=== PATIENT | male | born 1965 | race Caucasian/White ===

== ENCOUNTER 2020-06-14 11:51 | Inpatient (IN) ==
[2020-06-14] MEDS ORDERED: BENZONATATE 100 MG CAPSULE PO ONE (12:15)
[2020-06-14] MEDS ORDERED: 0.9 % SODIUM CHLORIDE 1,000 ML IV ONE (12:15)
[2020-06-14] MEDS ORDERED: methylPREDNISolone SOD SUCC 125 MG/2 ML VIAL IV ONE (12:15)
[2020-06-14] MEDS ORDERED: IPRATROPIUM/ALBUTEROL 3 ML AMPUL.NEB NEB ONE ×2 (12:15→18:13)
--- NOTE | 2020-06-14 12:20 | Emergency Department Note ---
HPI General Chief complaint: Cold/Flu Symptoms Stated complaint: COVID positive Time Seen by Provider: 06/14/20 12:01 Source: patient and family Mode of arrival: ambulatory Limitations: no limitations History of Present Illness HPI Narrative: Narrative: 54-year-old male patient presents emergency department chief complaint of worsening shortness of breath and aggressive cough. Patient has known COVID positive. He was recently seen in emergency department by a colleague on 06/10. A review of that note indicates that the patient was known COVID positive 4 days prior to this visit. He has been on multiple courses of corticosteroids as well as nebulizers [id number]. Both he and his tell me that he has been using the nebulizers every 3-4 hours. They have been supplementing this with his albuterol inhaler. He was started on dual hydroxychloroquine and azithromycin therapy by the previous ER provider. Patient was also given Robitussin with codeine for the cough. Unfortunately, he and his mention that this is been ineffective in helping control symptoms. He mentions that he is unable to lay down supine secondary to coughing so aggressively that he loses air. Making matters worse, patient is known asthmatic. He tells me at least once a day he feels "like I am on my deathbed". ROS: Admits to systemic illness, fever, sweats, chills. Denies headaches, tinnitus, or vision changes. Denies runny nose or sinus congestion. Denies retrosternal chest pain or palpitations. Denies abdominal pain, nausea, vomiting, or diarrhea. Denies generalized or focal weakness. Related Data Home Medications Medication Instructions Recorded Confirmed albuterol sulfate 90 mcg/actuation 2 inh INHALATION Q6H PRN 06/04/20 06/04/20 breath activated powder inhaler dexlansoprazole 30 mg 30 mg PO QDAY 06/04/20 06/04/20 capsule,biphase delayed release Previous Rx's Medication Instructions Recorded azithromycin [Zithromax] 250 mg PO QDAY 5 Days #5 tab 06/10/20 codeine-guaifenesin 5 ml PO ONCE #240 ml 06/10/20 hydroxychloroquine 200 mg PO BID #11 tab 06/10/20 prednisone [Prednisone] 20 mg PO DAILY #23 tab 06/10/20 Allergies Allergy/AdvReac Type Severity Reaction Status Date / Time No Known Drug Allergies Allergy Verified 06/04/20 18:20 Review of Systems ROS ROS Narrative: Narrative: All systems ED: reviewed and negative except as stated. [facility] Narrative Patient History Narrative: Narrative: Medical/Surgical/Family History All Active Problems (Updated 06/14/20 @ 19:03 by Beny Garland PA-C) COVID-19 (Acute) Pneumonia due to 2019 novel coronavirus (Acute) Asthma (Acute) Shortness of breath (Acute) Wheezing on auscultation (Acute) Exposure to COVID-19 virus (Acute) Pyelonephritis (Acute) Right shoulder strain (Acute) Medical History Asthma (Acute) Exposure to COVID-19 virus (Acute) Shortness of breath (Acute) Wheezing on auscultation (Acute) Social History Smoking Status: Former smoker Alcohol Intake Frequency: a few times a month Substance Use: does not use Exam Narrative Narrative: Narrative: General Limitations: no limitations General appearance: other (Well-developed, well-nourished, acutely ill-appearing 54-year-old male patient sitting upright on the emergency room [facility] in obvious respiratory distress. He is tachypneic at 22-24 breaths/min. He is speaking in broken sentences. He has some nasal flaring. No accessory muscle use noted.) Head Head: atraumatic and normocephalic Eye Eye: Present normal appearance, PERRL and EOMI; Absent scleral icterus and conjunctival injection ENT ENT: Present normal oropharynx and mucous membranes moist Neck Neck: Present trachea midline; Absent lymphadenopathy and thyromegaly Chest Chest: Present symmetric chest wall rise Respiratory Respiratory: Present respiratory distress, wheezes (Throughout the chest.), prolonged expiratory phase and decreased breath sounds; Absent normal lung sounds bilaterally, rales/crackles, stridor and accessory muscle use Cardiovascular Cardiovascular: Present regular rate and normal rhythm; Absent systolic murmur and diastolic murmur Adbominal Abdominal: Present soft; Absent distention, tenderness, guarding, rebound, rigidity, organomegaly and mass Extremities Extremities: Present normal inspection, full ROM, normal capillary refill and pedal edema (+1 pitting edema to the dorsum of each foot.) Back Back: Present normal inspection and full ROM Neurological Neurological: Present alert and oriented X3 Psychiatric Psychiatric: Present normal affect and anxious Skin Skin: Present warm, dry and normal color Course Course Course Narrative: Patient is known COVID positive with a comorbidity of asthma. He is hypotensive at 85/46. He is not tachycardic with a heart rate of 83. He is tachypneic. His temperature is 96.4 in triage. SPO2 is initially 96% on room air. However during my examination patient decreased down to 89% on room air during lung exam. Based on his initial presentation and vital signs patient does meet SIRS criteria. We are going to get a repeat chest x-ray, screening laboratory studies including a lactic acid and procalcitonin. Patient is in considerable respiratory distress and will be provided DuoNeb treatment x1 to see what his response is. He is going to be given Solu-Medrol 125 mg IVP. We will treat his cough with benzonatate 200 mg p.o. Patient is very anxious secondary to the coughing and shortness of breath so we will provide him lorazepam 1 mg IVP. We are also going to give him normal saline 1000 mL as a bolus. Reevaluation(s) Reevaluation #1: A review the patient's diagnostics show the following: CBC WBC 10.2, RBC 4.54, hemoglobin 13.4, hematocrit 39.2, platelets 237. Lactic acid 1.8. CMP CO2 20, anion gap 17, glucose 122, all others normal limits. C- reactive protein 8.4. Procalcitonin 0.09. Portable chest x-ray does show moderate left mid lung and smaller right basilar infiltrate. Radiologist ment ions these are both new from exam 4 days ago. Upon reevaluation patient is resting more comfortably on the emergency room [place]. He is no longer tachypneic. His breathing is more controlled and he is only coughing sporadically. He is no longer in considerable respiratory distress. His SPO2 has declined to 91-93% on room air. He does mention feeling much better since being given the medications. After reviewing all of the data I discussed these findings with the patient. Patient has a normal WBC and a slightly decreased H&H. His lactic acid is normal. His chemistries were all within normal limits. C-reactive protein was only slightly elevated. His procalcitonin was negative. His portable chest x-ray did show a developing infiltrate to the left midlung and a smaller infiltrate to the right. This is new from previous exam. Patient has known COVID positive and this is likely developing viral pneumonia. He has been on 2 courses of corticosteroids as well as the hydroxychloroquine and a azithromycin with limited relief. Time: 15:30 Reevaluation #2: The patient is feeling better than initial presentation. However due to his history of asthma and known COVID positive status. I reached out to a power house engineer (Dr. Lott) to discuss the case with him prior to making a determination of disposition. Dr. Lott reviewed the patient's x- rays and we discussed his treatment course thus far. Patient is only 54 with known lung disease. Dr. Lott recommended to err on the side of caution and likely try to admit this patient to a facility that can monitor him for worsening over the next couple days. With this in mind, I did discussed the case at length with my hospitalist (Dr. Uribe). The hospitalist requested the patient be ambulated to look for oxygen desaturation. Patient was ambulated within the exam room and decompensated to 90% on room air. During this time he became profoundly dyspneic and needed to sit down. He was complaining of profound shortness of breath and was provided an additional DuoNeb treatment. Afterwards, patient remained 90-91% on room air. He was started on nasal cannula oxygen at 2 L/min. Despite this his SpO2 remained at 94%. Dr. Uribe discussed the case with our infectious disease provider (Dr. Perez). At this time is decided to start the patient on Remdesivir per hospital protocol. Time: 19:02 Reevaluation #3: Remdesivir patient handout and consent to treatment were thoroughly discussed with the patient prior to him agreeing to treatment. We had a candid discussion about the medication and its emergency use authorization (EUA). The patient's questions were satisfactorily answered and he signed the consent for treatment. Patient was provided Remdesivir 200 mg IV as a loading dose here in the emergency department. Afterward, patient is going to be ad mitted under the care of the hospitalist. All further treatment decisions, modalities, and ultimate patient disposition to be carried out by the hospitalist. Time: 20:58 Vital Signs Vital signs: Vital Signs Temperature 96.4 F L 06/14/20 11:52 Pulse Rate 83 06/14/20 11:52 Respiratory Rate 22 06/14/20 11:52 Blood Pressure 85/46 06/14/20 11:52 Pulse Oximetry (%) 96 06/14/20 11:52 Temperature 96.4 F L 06/14/20 11:52 Pulse Rate 70 06/14/20 20:00 Respiratory Rate 20 06/14/20 19:00 Blood Pressure 112/70 06/14/20 20:00 Pulse Oximetry (%) 92 06/14/20 20:00 MDM MDM Narrative Medical decision making narrative: Narrative: Lab Data Lab results reviewed: Yes I reviewed the patient's lab results. Result diagrams: 06/14/20 12:38 06/14/20 12:38 Labs: Lab Results 06/14/20 06/14/20 06/14/20 Range/Units 12:38 12:38 12:38 WBC 10.2 (4.50-11.00) K/mcL RBC 4.54 L (4.63-6.08) M/mcL Hgb 13.4 L (13.7-17.5) g/dL Hct 39.2 L (40.1-51.0) % MCV 86.3 (80.0-100.0) fL MCH 29.5 (26.0-34.0) pg MCHC 34.2 (31.0-36.0) g/dL RDW 12.7 (11.5-14.5) % Plt Count 237 (140-440) K/mcL MPV 9.5 (7.4-10.4) fL Gran % 90.1 H (38.0-78.0) % Lymph % (Auto) 4.3 L (15.5-49.0) % [place] % (Auto) 5.5 (1.0-12.0) % Eos % (Auto) 0 (0.0-7.0) % Baso % (Auto) 0.1 (0.0-2.0) % Gran # 9.14 H (1.80-8.00) K/mcL Lymph # (Auto) 0.44 L (1.50-4.80) K/mcL [place] # (Auto) 0.56 (0.10-0.90) K/mcL Eos # (Auto) 0 (0.00-0.70) K/mcL Baso # (Auto) 0.01 (0.00-0.30) K/mcL VBG Lactic Acid 1.8 (0.5-2.0) mmol/L Sodium 136 (133-145) mmol/L Potassium 4.3 (3.3-5.1) mmol/L Chloride 99 (96-108) mmol/L Carbon Dioxide 20 L (22-30) mmol/L Anion Gap 17.0 H (8-16) BUN 17 (6-20) mg/dl Creatinine 1.0 (0.7-1.2) mg/dl GFR Calculation 85 Glucose 122 H (70-105) mg/dL Calcium 8.7 (8.6-10.4) mg/dl Total Bilirubin 0.4 (0.0-1.0) mg/dL AST 37 (0-37) U/l ALT 36 (0-40) U/l Alkaline Phosphatase 84 (39-117) U/L C-Reactive Protein 8.4 H (0.0-0.8) mg/dl Total Protein 7.0 (5.9-8.4) gm/dL Albumin 3.9 (3.2-5.2) gm/dL Globulin 3.1 (2.2-3.7) gm/dL Albumin/Globulin Ratio 1.3 (1.0-2.3) Procalcitonin (<0.10) ng/mL 06/14/20 Range/Units 12:38 WBC (4.50-11.00) K/mcL RBC (4.63-6.08) M/mcL Hgb (13.7-17.5) g/dL Hct (40.1-51.0) % MCV (80.0-100.0) fL MCH (26.0-34.0) pg MCHC (31.0-36.0) g/dL RDW (11.5-14.5) % Plt Count (140-440) K/mcL MPV (7.4-10.4) fL Gran % (38.0-78.0) % Lymph % (Auto) (15.5-49.0) % [place] % (Auto) (1.0-12.0) % Eos % (Auto) (0.0-7.0) % Baso % (Auto) (0.0-2.0) % Gran # (1.80-8.00) K/mcL Lymph # (Auto) (1.50-4.80) K/mcL [place] # (Auto) (0.10-0.90) K/mcL Eos # (Auto) (0.00-0.70) K/mcL Baso # (Auto) (0.00-0.30) K/mcL VBG Lactic Acid (0.5-2.0) mmol/L Sodium (133-145) mmol/L Potassium (3.3-5.1) mmol/L Chloride (96-108) mmol/L Carbon Dioxide (22-30) mmol/L Anion Gap (8-16) BUN (6-20) mg/dl Creatinine (0.7-1.2) mg/dl GFR Calculation Glucose (70-105) mg/dL Calcium (8.6-10.4) mg/dl Total Bilirubin (0.0-1.0) mg/dL AST (0-37) U/l ALT (0-40) U/l Alkaline Phosphatase (39-117) U/L C-Reactive Protein (0.0-0.8) mg/dl Total Protein (5.9-8.4) gm/dL Albumin (3.2-5.2) gm/dL Globulin (2.2-3.7) gm/dL Albumin/Globulin Ratio (1.0-2.3) Procalcitonin 0.09 (<0.10) ng/mL Radiology Data Radiology results reviewed: Yes I reviewed the patient's radiology results. Radiology results narrative: Ordering Physician: Beny Garland PA-C Date of Service: 06/14/20 Procedure(s): XR chest 1V portable Accession Number(s): [id number] CLINICAL INFORMATION: Worsening SOB. Known COVID +, Hx of asthma. COMPARISON: 06/10/2020 FINDINGS: Cardiomediastinal silhouette and pulmonary vessels are normal for technique. Moderate patchy infiltrate in the left midlung and smaller infiltrate in the right base have both developed since exam four days ago. No effusion IMPRESSION: Moderate left mid lung and smaller right basilar infiltrate - both new from the exam four days ago Interpreted and Authenticated by: Julian Monroe 06/14/20 Discharge Plan Patient/Caregiver Discharge Instructions Pt seen by INSULATION BATTING MACHINE OPERATOR/PA only: Yes Clinical Impression: COVID-19, Shortness of breath, Pneumonia due to 2019 novel coronavirus Asthma Qualifiers: Asthma severity: moderate Asthma persistence: unspecified Asthma complication type: with acute exacerbation Qualified Code(s): J45.901 - Unspecified asthma with (acute) exacerbation Patient Disposition: Xfer As Inpt ([facility]) Condition: Serious Follow up with: Ling Ng, [place], CONTROL SYSTEM MANAGER [Primary Care Provider] - Prescriptions: No Action Dexilant 30 mg capsule,biphase delayed releas 30 mg PO QDAY RF: 0 albuterol sulfate 90 mcg/actuation aerosol powdr breath activated 2 inh INHALATION Q6H PRN (Reason: Shortness Of Breath Or Wheezing) RF: 0 prednisone [Prednisone] 20 MG tablet 20 mg PO DAILY Qty: 23 RF: 0 hydroxychloroquine 200 mg tablet 200 mg PO BID Qty: 11 RF: 0 azithromycin [Zithromax] 250 mg tablet 250 mg PO QDAY 5 Days Qty: 5 RF: 0 codeine-guaifenesin 10-200 mg/5 mL liquid 5 ml PO ONCE Qty: 240 RF: 1
[2020-06-14] MEDS ORDERED: LORazepam 2 MG/ML VIAL IV ONE (12:29)
--- NOTE | 2020-06-14 12:41 | XRay Report ---
CLINICAL INFORMATION: Worsening SOB. Known COVID +, Hx of asthma. COMPARISON: 06/10/2020 FINDINGS: Cardiomediastinal silhouette and pulmonary vessels are normal for technique. Moderate patchy infiltrate in the left midlung and smaller infiltrate in the right base have both developed since exam four days ago. No effusion IMPRESSION: Moderate left mid lung and smaller right basilar infiltrate - both new from the exam four days ago Interpreted and Authenticated by: Julian Monroe 06/14/20
[2020-06-14 13:26] LABS: Basophils # (Auto) 0.01 K/mcL (0.00-0.30); Basophils % (Auto) 0.1 % (0.0-2.0); Eosinophils # (Auto) 0 K/mcL (0.00-0.70); Eosinophils % (Auto) 0 % (0.0-7.0); Granulocytes % (Auto) 90.1 % (38.0-78.0); Hematocrit 39.2 % (40.1-51.0); Hemoglobin 13.4 g/dL (13.7-17.5); Lymphocytes # (Auto) 0.44 K/mcL (1.50-4.80); Lymphocytes % (Auto) 4.3 % (15.5-49.0); Mean Cell Volume 86.3 fL (80.0-100.0); Mean Corpuscular HGB Conc 34.2 g/dL (31.0-36.0); Mean Platelet Volume 9.5 fL (7.4-10.4); Monocytes # (Auto) 0.56 K/mcL (0.10-0.90); Monocytes % (Auto) 5.5 % (1.0-12.0); Platelet Count 237 K/mcL (140-440); RBC 4.54 M/mcL (4.63-6.08); Red Cell Distribution Width 12.7 % (11.5-14.5); WBC 10.2 K/mcL (4.50-11.00)
[2020-06-14 13:52] LABS: Chloride 99 mmol/L (96-108)
[2020-06-14 13:54] LABS: ALT/SGPT 36 U/l (0-40); AST/SGOT 37 U/l (0-37); Albumin 3.9 gm/dL (3.2-5.2); Albumin/Globulin Ratio 1.3 (1.0-2.3); Alkaline Phosphatase 84 U/L (39-117); Bilirubin,Total 0.4 mg/dL (0.0-1.0); Blood Urea Nitrogen 17 mg/dl (6-20); C-Reactive Protein 8.4 mg/dl (0.0-0.8); Calcium 8.7 mg/dl (8.6-10.4); Carbon Dioxide 20 mmol/L (22-30); Globulin 3.1 gm/dL (2.2-3.7); Glomerular Filtration Rate 85; Glucose 122 mg/dL (70-105)
[2020-06-14] MEDS ORDERED: REMDESIVIR 200 MG IV ONE (18:24)
--- NOTE | 2020-06-14 18:45 | Internal Med History&Physical ---
HPI History of Present Illness Patient information: Note initiated : 06/14/20 at worsening shortness of breath 6:39 pm Service Date, if different from initiated Date: [] Patient: Mathew Nuñez Jr a 54 y/o M admitted on for COVID positive. Chief Complaint: History of present illness: Mr. Savannah Perez is a 54 year old M with a history of asthma and recent diagnosis of COVID 4 days prior to presentation during ER visit. Patient was started on hydroxychloroquine/azithromycin during the prior visit and was discharged home however after initial improvement on hydroxychloroquine he continued to deteriorate requiring frequent bronchodilators/nebulizers and steroids without adequate relief. His symptoms progressed to severe dyspnea at rest today and now presents to the ER. Initial work-up in the ER was consistent with new infiltrates in the chest on imaging including left mid and right lower lobe. Pulmonology was consulted and based on his symptoms and age recommended admission to the hospital. He has been frequently coughing. His sats dropped down to high 80s on minimal exertion. He was started on oxygen with sats improving to 92%. Subsequently hospitalist service was consulted for management of COVID pneumonia. He however denies diarrhea, dysuria, weight loss, fever, headache or photophobia. Endorses myalgia but denies anosmia or loss of taste. Patient was started on Remdesivir 200 along with methylprednisolone 125. Review of systems 10 point review system was attempted and negative except for ones discussed above PFSH PFSH All Active Problems (Updated 06/14/20 @ 19:03 by Beny Garland PA-C) COVID-19 (Acute) Pneumonia due to 2019 novel coronavirus (Acute) Asthma (Acute) Shortness of breath (Acute) Wheezing on auscultation (Acute) Exposure to COVID-19 virus (Acute) Pyelonephritis (Acute) Right shoulder strain (Acute) Medical History Asthma (Acute) Exposure to COVID-19 virus (Acute) Shortness of breath (Acute) Wheezing on auscultation (Acute) Social History smoking status: Former smoker alcohol intake frequency: a few times a month substance use type: does not use MEDS/ALLERGIES Home Medications and Allergies Home Medications Medication Instructions Recorded Confirmed Type albuterol sulfate 90 mcg/actuation 2 inh INHALATION Q6H PRN 06/04/20 06/14/20 History breath activated powder inhaler dexlansoprazole 30 mg 30 mg PO QDAY 06/04/20 06/14/20 History capsule,biphase delayed release azithromycin [Zithromax] 250 mg PO QDAY 5 Days #5 tab 06/10/20 06/14/20 Rx codeine-guaifenesin 5 ml PO ONCE #240 ml 06/10/20 06/14/20 Rx hydroxychloroquine 200 mg PO BID #11 tab 06/10/20 06/14/20 Rx prednisone [Prednisone] 20 mg PO DAILY #23 tab 06/10/20 06/14/20 Rx Allergies Allergy/AdvReac Type Severity Reaction Status Date / Time No Known Drug Allergies Allergy Verified 06/04/20 18:20 EXAM Constitutional Vitals: Temp Pulse Resp BP Pulse Ox 96.4 F L 73 20 129/75 93 06/14/20 11:52 06/14/20 16:35 06/14/20 13:57 06/14/20 16:35 06/14/20 16:35 Head normocephalic Oral cavity moist No ear nose discharge Eye movement symmetrical Neck supple no lymphadenopathy S1-S2 regular Labored breathing Nondistended nontender abdomen Lower extremity no cyanosis clubbing or joint swelling Skin no suspicious lesion Psych anxious but alert cooperative Neuro normal higher function DATA Data Completed and Pending Labs: Labs from last 24 hours 06/14/20 06/14/20 06/14/20 12:38 12:38 12:38 WBC RBC Hgb Hct MCV MCH MCHC RDW Plt Count MPV Gran % Lymph % (Auto) [place] % (Auto) Eos % (Auto) Baso % (Auto) Gran # Lymph # (Auto) [place] # (Auto) Eos # (Auto) Baso # (Auto) VBG Lactic Acid 1.8 Sodium 136 Potassium 4.3 Chloride 99 Carbon Dioxide 20 L Anion Gap 17.0 H BUN 17 Creatinine 1.0 GFR Calculation 85 Glucose 122 H Calcium 8.7 Total Bilirubin 0.4 AST 37 ALT 36 Alkaline Phosphatase 84 C-Reactive Protein 8.4 H Total Protein 7.0 Albumin 3.9 Globulin 3.1 Albumin/Globulin Ratio 1.3 Procalcitonin 0.09 06/14/20 12:38 WBC 10.2 RBC 4.54 L Hgb 13.4 L Hct 39.2 L MCV 86.3 MCH 29.5 MCHC 34.2 RDW 12.7 Plt Count 237 MPV 9.5 Gran % 90.1 H Lymph % (Auto) 4.3 L [place] % (Auto) 5.5 Eos % (Auto) 0 Baso % (Auto) 0.1 Gran # 9.14 H Lymph # (Auto) 0.44 L [place] # (Auto) 0.56 Eos # (Auto) 0 Baso # (Auto) 0.01 VBG Lactic Acid Sodium Potassium Chloride Carbon Dioxide Anion Gap BUN Creatinine GFR Calculation Glucose Calcium Total Bilirubin AST ALT Alkaline Phosphatase C-Reactive Protein Total Protein Albumin Globulin Albumin/Globulin Ratio Procalcitonin A/P Narrative A/P Narrative: * COVID-19 pneumonia-started Remdesivir/steroid. Was recently on hydroxychloroquine/azithromycin without any improvement in symptoms * Hypoxic respiratory failure-requiring 2 L oxygen. Continue close monitoring. * Severe dyspnea secondary above * History of reactive disease continue bronchodilators * Full code Plan * inpatient PCU admission * Remdesvir 200 loading/100 IV daily for 5 days * Dexamethasone 6 mg daily for 10 days * Supplemental oxygen * Intubate if worsening respiratory status Time Spent With Patient Time: Total time spent is greater than 50% in coordination of care (as documented) at patient's floor/unit and/or counseling patient:
[2020-06-14] MEDS ORDERED: REMDESIVIR 200 MG in 0.9 % SODIUM CHLORIDE 250 ML IV ONE (20:00)
[2020-06-14] MEDS ORDERED: POLYETHYLENE GLYCOL 3350 17 GM PACKET PO PRN (22:28)
[2020-06-14] MEDS ORDERED: SENNOSIDES/DOCUSATE SODIUM 1 TAB TABLET PO SCH (22:28)
[2020-06-14] MEDS ORDERED: MAGNESIUM SULFATE 2 GM/50 ML BAG IV PRN (22:28)
[2020-06-14] MEDS ORDERED: ONDANSETRON 4 MG ODT TABLET SL PRN (22:28)
[2020-06-14] MEDS ORDERED: ACETAMINOPHEN 650 MG/65 ML BOTTLE IV PRN (22:28)
[2020-06-14] MEDS ORDERED: ONDANSETRON 4 MG/2 ML VIAL IV PRN (22:28)
[2020-06-14] MEDS ORDERED: BISACODYL 10 MG SUPP.RECT PR PRN (22:28)
[2020-06-14] MEDS ORDERED: ACETAMINOPHEN 325 MG TABLET PO PRN (22:28)
[2020-06-14] MEDS ORDERED: POTASSIUM CHLORIDE 20 MEQ PACKET PO PRN (22:28)
[2020-06-14] MEDS ORDERED: MELATONIN 3 MG TABLET PO PRN (22:28)
[2020-06-14] MEDS: HEPARIN 5,000 UNIT/ML VIAL SQ SCH (23:44)
[2020-06-14] MEDS: DOCUSATE SODIUM 100 MG CAPSULE PO SCH (23:44)
[2020-06-14] MEDS: 0.9 % SODIUM CHLORIDE 10 ML SYRINGE IV SCH (23:45)
[2020-06-15 00:25] LABS: C-Reactive Protein 6.4 mg/dl (0.0-0.8); Creatine Kinase 369 IU/L (24-195); Ferritin 551.4 ng/ml (30-400)
[2020-06-15] MEDS ORDERED: IPRATROPIUM/ALBUTEROL 3 ML AMPUL.NEB NEB PRN (02:16)
[2020-06-15] MEDS ORDERED: IPRATROPIUM/ALBUTEROL 3 ML AMPUL.NEB NEB ONE ×2 (02:24→07:07)
[2020-06-15] MEDS ORDERED: LORazepam 2 MG/ML VIAL IV ONE (02:36)
[2020-06-15] MEDS ORDERED: LORazepam 2 MG/ML VIAL ONE (02:43)
[2020-06-15 06:49] LABS: Hematocrit 36.6 % (40.1-51.0); Hemoglobin 11.8 g/dL (13.7-17.5); Mean Cell Volume 90.6 fL (80.0-100.0); Mean Corpuscular HGB Conc 32.2 g/dL (31.0-36.0); Mean Platelet Volume 9.9 fL (7.4-10.4); Platelet Count 232 K/mcL (140-440); RBC 4.04 M/mcL (4.63-6.08); Red Cell Distribution Width 12.9 % (11.5-14.5); WBC 16.2 K/mcL (4.50-11.00)
[2020-06-15 07:02] LABS: ALT/SGPT 28 U/l (0-40); AST/SGOT 22 U/l (0-37); Albumin 3.1 gm/dL (3.2-5.2); Albumin/Globulin Ratio 1.1 (1.0-2.3); Alkaline Phosphatase 68 U/L (39-117); Bilirubin,Direct < 0.2 mg/dL (0.0-0.3); Bilirubin,Total 0.2 mg/dL (0.0-1.0); Calcium 8.5 mg/dl (8.6-10.4); Chloride 102 mmol/L (96-108); Globulin 2.9 gm/dL (2.2-3.7); Glomerular Filtration Rate 96; Glucose 113 mg/dL (70-105); Lactate Dehydrogenase 229 U/L (94-250); Triglycerides 99 mg/dl (<150); Uric Acid 7.3 mg/dL (2.5-8.0)
[2020-06-15 07:03] LABS: Blood Urea Nitrogen 23 mg/dl (6-20); Carbon Dioxide 23 mmol/L (22-30)
[2020-06-15 07:43] LABS: Lymphocytes % 3 % (15-49); Monocytes % (Manual) 2 % (1-12); Myelocytes % 1 % (0-0); Platelet Estimate NORMAL (NORMAL); RBC Morphology NORMAL (NORMAL); Reactive Lymphocytes 1 % (0-2); Segmented Neutrophils % 93 % (38-78)
[2020-06-15] MEDS ORDERED: [UNRECOGNIZED DRUG - OTHER] IA SCH (09:00)
[2020-06-15] MEDS ORDERED: MULTIVIT,THER IRON,CA,FA & MIN 1 TABLET PO SCH (09:00)
[2020-06-15] MEDS ORDERED: SODIUM CHLORIDE IA SCH (09:00)
[2020-06-15] MEDS ORDERED: DEXAMETHASONE 4 MG TABLET PO SCH (09:00)
[2020-06-15] MEDS ORDERED: ALBUTEROL SULFATE 200 PUFF INHALER INH PRN (09:11)
[2020-06-15] MEDS ORDERED: BENZONATATE 100 MG CAPSULE PO PRN (09:12)
[2020-06-15] MEDS: 0.9 % SODIUM CHLORIDE 10 ML SYRINGE IV SCH ×2 (09:17→14:04)
[2020-06-15] MEDS: HEPARIN 5,000 UNIT/ML VIAL SQ SCH (09:19)
[2020-06-15] MEDS: DOCUSATE SODIUM 100 MG CAPSULE PO SCH (09:19)
[2020-06-15] MEDS ORDERED: cefTRIAXone 2 GM in DEXTROSE 5% IN WATER 50 ML IV SCH (10:00)
[2020-06-15] MEDS ORDERED: VITAMIN D3 5,000 UNIT CAPSULE PO SCH (10:00)
[2020-06-15] MEDS: LORazepam 2 MG/ML VIAL IV PRN ×2 (10:10→14:04)
[2020-06-15] MEDS: PIPERACILLIN SODIUM/TAZOBACTAM 3.375 GM in DEXTROSE 5% IN WATER 50 ML IV SCH ×2 (10:36→14:03)
--- NOTE | 2020-06-15 13:16 | Transfer Summary ---
Discharge Provider Provider Patient information: Note initiated : 06/15/20 at 1:10 pm Service Date, if different from initiated Date: [] Patient: Mathew Nuñez Jr a 54 y/o M admitted on 06/14/20 for COVID positive. Chief Complaint: [] Transfer diagnosis * COVID-19 pneumonia-continue Remdesivir/dexamethasone. Was recently on hydroxychloroquine/azithromycin/steroid without any improvement in symptoms. Additional coverage on Zosyn for bacterial pathogen coverage. Transferring to tertiary center for further management * Hypoxic respiratory failure-requiring 4-5 L oxygen. Rapid deterioration noted with multifocal chest infiltrates on interval imaging. PaO2 FiO2 ratio less than 200. ABG 7. on rebreather mask during exertion * History of reactive airway disease continue bronchodilators Brief hospital course Mr. Savannah Perez is a 54 year old M with a history of asthma and recent diagnosis of COVID 4 days prior to presentation during ER visit. Over the last 7 to 10 days patient has been increasingly short of breath coughing patient was started on hydroxychloroquine/azithromycin during the prior visit 06/10 and was discharged home. However following initial improvement on hydroxychloroquine he continued to deteriorate requiring frequent bronchodilators/nebulizers and steroids without adequate relief. His symptoms progressed to severe dyspnea at rest and now presents to the ER. Initial work-up in the ER was consistent with new infiltrates in the chest on imaging including left mid and right lower lobe. Patient requiring 1 L oxygen to maintain sats above 90s. Pulmonology was consulted and based on his symptoms and age recommended admission to the hospital. Subsequently hospitalist service was consulted for management of COVID pneumonia. He however denies diarrhea, dysuria, weight loss, fever, headache or photophobia. Endorses myalgia but denies anosmia or loss of taste. Patient was started on Remdesivir 200 along with methylprednisolone 125. 06/15-patient demonstrating dramatic deterioration in respiratory status requiring 4 L oxygen this morning. Continuing Remdezivir/steroid/bronchodilators. Sats dropped down to low 80s on minimal exertion while ambulating to the bathroom. Patient was started on nonrebreather. Blood gas 7.. Sats improved to low 90s on 4 L oxygen following rest. Chest x-ray shows worsening pulmonary infiltrates. In light of deteriorating status and possible need of specialized treatment including prone ventilation if patient continues to deteriorate case was discussed with [facility] wet cleaner machine Dr. Fuller. White count 16,000 and hence additional coverage for bacterial pathogen started on Zosyn. Patient was accepted for further management at [facility]. Patient be transferred via ambulance. Also patient's clinical status was discussed with patient's on phone and the necessity for transfer to tertiary center. and patient in agreement Date of admission: 06/14/20 22:06 Discharge date: 06/15/20 Primary care physician: Ling Ng Consults: 06/14/20 18:21 Consult to Physician [CONS] Stat Comment: Consulting Provider: Arsalan Jones Reason For Exam: Physician to Consult Discharge Meds Discharge Medications Home Medications albuterol sulfate 90 mcg/actuation breath activated powder inhaler 2 inh INHALATION Q6H PRN 06/04/20 [History Confirmed 06/14/20 Last Taken Unknown] dexlansoprazole 30 mg capsule,biphase delayed release 30 mg PO BID 06/04/20 [History Confirmed 06/14/20 Last Taken 06/14/20 07:00] azithromycin [Zithromax] 250 mg PO QDAY 5 Days #5 tab 06/10/20 [Rx Confirmed 06/14/20 Last Taken Unknown] codeine-guaifenesin 5 ml PO ONCE #240 ml 06/10/20 [Rx Confirmed 06/14/20 Last Taken Unknown] hydroxychloroquine 200 mg PO BID #11 tab 06/10/20 [Rx Confirmed 06/14/20 Last Taken Unknown] prednisone [Prednisone] 20 mg PO DAILY #23 tab 06/10/20 [Rx Confirmed 06/14/20 Last Taken Unknown] COURSE Hospital Course Hospital course: / Discharge diagnosis: . Time Spent with Patient Time attestation: Total time spent providing and/or coordinating discharge services: EXAM Constitutional Vitals: Temp Pulse Resp BP Pulse Ox 97.9 F 76 24 H 119/68 97 06/15/20 12:00 06/15/20 12:01 06/15/20 12:01 06/15/20 12:01 06/15/20 12:01 alert but very anxious Labored and tachypneic Discharge Data Data Completed and Pending Labs on day of discharge: Labs from last 24 hours 06/15/20 06/15/20 06/14/20 04:19 04:19 22:55 WBC 16.2 H RBC 4.04 L Hgb 11.8 L Hct 36.6 L MCV 90.6 MCH 29.2 MCHC 32.2 RDW 12.9 Plt Count 232 MPV 9.9 Gran % Lymph % (Auto) Rogers % (Auto) Eos % (Auto) Baso % (Auto) Gran # Lymph # (Auto) Rogers # (Auto) Eos # (Auto) Baso # (Auto) Total Counted 100 Seg Neutrophils % 93 H Band Neutrophils % Not Reportable Lymphocytes % 3 L Monocytes % (Manual) 2 Myelocytes % 1 H Reactive Lymphocytes 1 Platelet Estimate Normal RBC Morphology Normal VBG Lactic Acid Sodium 138 Potassium 4.6 Chloride 102 Carbon Dioxide 23 Anion Gap 13.0 BUN 23 H Creatinine 0.9 GFR Calculation 96 Glucose 113 H Uric Acid 7.3 Calcium 8.5 L Phosphorus 3.0 Magnesium 2.3 Ferritin 551.4 H Total Bilirubin 0.2 Direct Bilirubin < 0.2 GGT 59 AST 22 ALT 28 Alkaline Phosphatase 68 Lactate Dehydrogenase 229 Total Creatine Kinase 369 H C-Reactive Protein 6.4 H Total Protein 6.0 Albumin 3.1 L Globulin 2.9 Albumin/Globulin Ratio 1.1 Triglycerides 99 Procalcitonin 06/14/20 06/14/20 06/14/20 12:38 12:38 12:38 WBC RBC Hgb Hct MCV MCH MCHC RDW Plt Count MPV Gran % Lymph % (Auto) Rogers % (Auto) Eos % (Auto) Baso % (Auto) Gran # Lymph # (Auto) Rogers # (Auto) Eos # (Auto) Baso # (Auto) Total Counted Seg Neutrophils % Band Neutrophils % Lymphocytes % Monocytes % (Manual) Myelocytes % Reactive Lymphocytes Platelet Estimate RBC Morphology VBG Lactic Acid 1.8 Sodium 136 Potassium 4.3 Chloride 99 Carbon Dioxide 20 L Anion Gap 17.0 H BUN 17 Creatinine 1.0 GFR Calculation 85 Glucose 122 H Uric Acid Calcium 8.7 Phosphorus Magnesium Ferritin Total Bilirubin 0.4 Direct Bilirubin GGT AST 37 ALT 36 Alkaline Phosphatase 84 Lactate Dehydrogenase Total Creatine Kinase C-Reactive Protein 8.4 H Total Protein 7.0 Albumin 3.9 Globulin 3.1 Albumin/Globulin Ratio 1.3 Triglycerides Procalcitonin 0.09 06/14/20 12:38 WBC 10.2 RBC 4.54 L Hgb 13.4 L Hct 39.2 L MCV 86.3 MCH 29.5 MCHC 34.2 RDW 12.7 Plt Count 237 MPV 9.5 Gran % 90.1 H Lymph % (Auto) 4.3 L Rogers % (Auto) 5.5 Eos % (Auto) 0 Baso % (Auto) 0.1 Gran # 9.14 H Lymph # (Auto) 0.44 L Rogers # (Auto) 0.56 Eos # (Auto) 0 Baso # (Auto) 0.01 Total Counted Seg Neutrophils % Band Neutrophils % Lymphocytes % Monocytes % (Manual) Myelocytes % Reactive Lymphocytes Platelet Estimate RBC Morphology VBG Lactic Acid Sodium Potassium Chloride Carbon Dioxide Anion Gap BUN Creatinine GFR Calculation Glucose Uric Acid Calcium Phosphorus Magnesium Ferritin Total Bilirubin Direct Bilirubin GGT AST ALT Alkaline Phosphatase Lactate Dehydrogenase Total Creatine Kinase C-Reactive Protein Total Protein Albumin Globulin Albumin/Globulin Ratio Triglycerides Procalcitonin Discharge Plan Patient/Caregiver Discharge Instructions Activity: other Diet: Regular Diet Prescriptions: No Action Dexilant 30 mg capsule,biphase delayed releas 30 mg PO BID RF: 0 albuterol sulfate 90 mcg/actuation aerosol powdr breath activated 2 inh INHALATION Q6H PRN (Reason: Shortness Of Breath Or Wheezing) RF: 0 prednisone [Prednisone] 20 MG tablet 20 mg PO DAILY Qty: 23 RF: 0 hydroxychloroquine 200 mg tablet 200 mg PO BID Qty: 11 RF: 0 azithromycin [Zithromax] 250 mg tablet 250 mg PO QDAY 5 Days Qty: 5 RF: 0 codeine-guaifenesin 10-200 mg/5 mL liquid 5 ml PO ONCE Qty: 240 RF: 1 Follow Up Plan Follow up with: Ling Ng, [place], EMERGENCY DEPARTMENT AIDE [Primary Care Provider] - Patient Disposition: [facility] Prognosis: Serious Rehab Potential: Serious I certify that the patient requires SNF services: No Overall status at discharge: patient is not back to baseline Discharge Orders: Discharge Order (Routine); Ordered 06/15/20 Ordered By: Arsalan Jones
[2020-06-15] MEDS ORDERED: REMDESIVIR 100 MG in 0.9 % SODIUM CHLORIDE 250 ML IV SCH (14:00)
--- NOTE | 2020-06-15 15:11 | XRay Report ---
CLINICAL INFORMATION: increased hypoxia COMPARISON: 06/14/2020 FINDINGS: Cardiomediastinal silhouette and pulmonary vessels are normal for technique. Moderate left mid /lower lung infiltrate is increased in size and density compared to yesterday's study. Smaller patchy right basilar infiltrate is also worsened. IMPRESSION: Moderate left mid/ lower lung infiltrate and smaller right lung infiltrate worsening from yesterday. Infection is suspected Interpreted and Authenticated by: Julian Monroe 06/15/20
[2020-06-16] MEDS ORDERED: FLU VACC QS2020-21(6MOS UP)/PF 60 MCG/0.5 ML SYRINGE IM ONE (10:00)
== END 2020-06-15 14:40 | disposition short-term general hospital (02) | DRG 177 ==
LOC: ED 11:51 → ICU 22:06
PROVIDERS: ADMIT Internal Medicine; ATTEND Internal Medicine